=== PATIENT | male | born 1955 | race Hispanic/Latino ===

== ENCOUNTER → 2018-08-24 | Outpatient (CLI) | payer BC | END | disposition home or self-care (01) | LOC: SHCH 10:00 | PROVIDERS: ATTEND Internal Medicine Cardiovascular Disease | DX: I34.0 Nonrheumatic mitral (valve) insufficiency (principal); I10 Essential (primary) hypertension; I48.1 Persistent atrial fibrillation | CPT/HCPCS: 93306 ==

== ENCOUNTER → 2018-09-16 | Outpatient (CLI) | payer BC | END | disposition home or self-care (01) | LOC: RAH 09:11 | PROVIDERS: ATTEND Internal Medicine Cardiovascular Disease | DX: I11.9 Hypertensive heart disease without heart failure (principal); I48.91 Unspecified atrial fibrillation | CPT/HCPCS: 93306 ==